=== PATIENT | female | born 1990 | race African-American/Black ===

== ENCOUNTER 2016-12-05 08:40 | Emergency (ER) | payer MEDICAID ==
[~2016-12-05] VITALS: Ht 167.6 cm; Wt 74.8 kg
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
[2016-12-05 09:07] VITALS: BP 127/87
[2016-12-05] MEDS ORDERED: IBUPROFEN600 MG ORAL (09:56)
[2016-12-05] MEDS ORDERED: ALBUTEROL SULF8.5 GM INH (09:56)
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
[2016-12-05 10:23] VITALS: BP 122/89
== END 2016-12-05 10:24 | disposition home or self-care (01) ==
LOC: EMR 09:14
DX: S02.82XA Fracture of other specified skull and facial bones, left side, initial encounter for closed fracture (principal); S06.9X9A Unspecified intracranial injury with loss of consciousness of unspecified duration, initial encounter; Y04.2XXA Assault by strike against or bumped into by another person, initial encounter; Y93.9 Activity, unspecified; Y92.9 Unspecified place or not applicable; Z88.6 Allergy status to analgesic agent; F31.9 Bipolar disorder, unspecified
CPT/HCPCS: 70450; 99284

== ENCOUNTER 2016-12-11 07:49 | Emergency (ER) | payer MEDICAID ==
[~2016-12-11] VITALS: Ht 167.6 cm; Wt 72.6 kg
[~2016-12-11 07:49] MED LIST: ALBUTEROL SULF8.5 GM INH; IBUPROFEN600 MG ORAL
[2016-12-11 07:57] VITALS: BP 125/83
[2016-12-11] MEDS ORDERED: IBUPROFEN600 MG ORAL (08:18)
[2016-12-11] MEDS ORDERED: ALBUTEROL SULF8.5 GM INH (08:18)
[2016-12-11] MEDS ORDERED: CLARITIN10 M2 ORAL (08:18)
[2016-12-11] MEDS ORDERED: PREDNISONE20 MG ORAL (08:18)
[2016-12-11] MEDS ORDERED: DuoNeb 0.5-3(2.5)mg/3ml neb HHN ONE (08:30)
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
[2016-12-11 08:54] VITALS: BP 121/86
== END 2016-12-11 08:54 | disposition home or self-care (01) ==
LOC: EMR 08:12
DX: R51 Headache (principal); S02.92XA Unspecified fracture of facial bones, initial encounter for closed fracture; X58.XXXA Exposure to other specified factors, initial encounter; Y93.9 Activity, unspecified; Y99.9 Unspecified external cause status; H57.12 Ocular pain, left eye; J40 Bronchitis, not specified as acute or chronic; Z88.6 Allergy status to analgesic agent; Z88.5 Allergy status to narcotic agent
CPT/HCPCS: 94640; 94664; 99284; J7620

== ENCOUNTER 2016-12-14 13:57 | Emergency (ER) | payer MEDICAID ==
[~2016-12-14] VITALS: Ht 167.6 cm; Wt 77.1 kg
[~2016-12-14 13:57] MED LIST changes: +CLARITIN10 M2 ORAL; +PREDNISONE20 MG ORAL
[2016-12-14] MEDS ORDERED: Albuterol ud Inhalation HHN ONE (14:15)
[2016-12-14] MEDS ORDERED: Solu-MEDROL 125mg Inj IM ONE (14:15)
--- NOTE | 2016-12-14 14:17 | Emergency Room Report ---
History of Present Illness General Chief Complaint: Skin Rash/Abscess Present Illness HPI Patient is a 23-year-old female who presents the ED today with complaints of a rash that began 2 days ago. She states she recently began taking [place], which is a new medication for her and she thinks the rash is secondary to the [place]. Patient also notes associated wheezing, has been taking albuterol inhaler with some relief. She is using hydrocortisone for the itching with some relief. Denies any new lotions, soaps, detergents, foods, pets contacts. Allergies: Coded Allergies: ACETAMINOPHEN (Verified Allergy, Unknown, 12/05/16) CODEINE (Verified Allergy, Unknown, 12/05/16) HYDROCODONE (Verified Allergy, Unknown, 12/05/16) Patient History Now: No Reviewed Nursing Documentation: PMH: Agreed, PSxH: Agreed Nursing Documentation-PMH Hx Asthma: Yes - Bronchitis Review of Systems Respiratory: Reports: wheezing Skin: Reports: rash All Other Systems: negative except mentioned in HPI Physical Exam Vital Signs Date Time Temp Pulse Resp B/P (MAP) Pulse Ox O2 Delivery O2 Flow Rate FiO2 12/14/16 14:01 97.7 130 20 135/90 96 Room Air Sp02 EP Interpretation: reviewed, normal General Appearance: no apparent distress, alert, GCS 15, non-toxic Head: normocephalic, atraumatic Eyes: bilateral eye normal inspection, bilateral eye PERRL ENT: hearing grossly normal, normal pharynx, no angioedema, normal voice Neck: full range of motion, supple/symm/no masses Respiratory: chest non-tender, speaking full sentences, other - faint inspiratory wheezing in all lung [place] Cardiovascular #1: regular rate, rhythm, no edema Cardiovascular #2: 2+ carotid (R), 2+ carotid (L), 2+ radial (R), 2+ radial (L) , 2+ dorsalis pedis (R), 2+ dorsalis pedis (L) Gastrointestinal: normal bowel sounds, non tender, soft, non-distended, no guarding, no rebound Rectal: deferred Genitourinary: normal inspection, no CVA tenderness Musculoskeletal: back normal, gait/station normal, normal range of motion, non- tender, calf tenderness Neurologic: alert, oriented x3, responsive, motor strength/tone normal, sensory intact, speech normal Psychiatric: judgement/insight normal, memory normal, mood/affect normal, no suicidal/homicidal ideation Reflexes: 3+ bicep (R), 3+ bicep (L), 3+ tricep (R), 3+ tricep (L), 3+ knee (R) , 3+ knee (L) Skin: normal color, warm/dry, well hydrated, other - maculopapular erruption on trunk Lymphatic: no adenopathy Medical Decision Making PA Attestation supervising physician is Dr. Koehler ER Course Patient is unemployed here to carry on and acute bronchospasm. Patient given Solu-Medrol, Benadryl and Pepcid with improvement of symptoms. Chest x-ray is within normal limits. Patient given breathing treatment with improvement of the wheezing. Her reevaluation at 1609, patient states she is feeling much better. Rash is improving, and wheezing is resolved and the itching is improving. Patient discharged home with prednisone and instructed to take Benadryl and Pepcid as needed for itching. Patient understands and is agreeable to plan. Chest X-Ray Diagnostic Results Chest X-Ray Diagnostic Results : Chest X-Ray Ordered: Yes # of Views/Limited/Complete: 1 View Indication: Shortness of Breath EP Interpretation: Yes Interpretation: no consolidation, no effusion, no pneumothorax Impression: No acute disease Electronically Signed by: Margaret gonzalez Last Vital Signs Date Time Temp Pulse Resp B/P (MAP) Pulse Ox O2 Delivery O2 Flow Rate FiO2 12/14/16 14:01 97.7 130 20 135/90 96 Room Air Status: improved Disposition: HOME, SELF-CARE Condition: Stable Scripts Prednisone* (PREDNISONE*) 20 Mg Tablet 40 MG ORAL DAILY for 4 Days, #4 TAB Prov: Margaret Gnozalez 12/14/16 Margaret Gonzalez Dec 14, 2016 14:17
[2016-12-14 14:50] VITALS: BP 139/92
[2016-12-14] MEDS ORDERED: PREDNISONE20 MG ORAL (16:10)
[2016-12-14 16:21] VITALS: BP 131/89
--- NOTE | 2016-12-15 11:51 | Diagnostic Imaging Report ---
Indication: SOB Technique: One view of the chest Comparison: none Findings: Lungs and pleural spaces are clear. Heart size is normal. Impression: No acute process
== END 2016-12-14 16:22 | disposition home or self-care (01) ==
LOC: EMR 14:30
DX: R21 Rash and other nonspecific skin eruption (principal); Z88.6 Allergy status to analgesic agent
CPT/HCPCS: 71010; 81025; 94640; 96372; 99284; J2930

== ENCOUNTER 2016-12-27 08:02 | Emergency (ER) | payer MEDICAID ==
[~2016-12-27] VITALS: Ht 167.6 cm; Wt 80.7 kg
[2016-12-27] MEDS ORDERED: ALBUTEROL SULF8.5 GM INH (08:17)
[2016-12-27] MEDS ORDERED: LORATADINE-D 11 EAC1 PO (08:17)
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
[2016-12-27 08:25] VITALS: BP 125/69
[2016-12-27 08:28] VITALS: BP 125/69
[2016-12-27] MEDS ORDERED: IBUPROFEN600 MG ORAL (09:49)
== END 2016-12-27 08:35 | disposition home or self-care (01) ==
LOC: EMR 08:16
DX: J30.9 Allergic rhinitis, unspecified (principal); J45.909 Unspecified asthma, uncomplicated; Z88.6 Allergy status to analgesic agent
CPT/HCPCS: 99284

== ENCOUNTER 2017-01-22 06:59 | Emergency (ER) | payer MEDICAID ==
[~2017-01-22] VITALS: Ht 167.6 cm; Wt 72.6 kg
[~2017-01-22 06:59] MED LIST changes: +LORATADINE-D 11 EAC1 PO
[2017-01-22] MEDS ORDERED: ABILIFY20 MG ORAL (07:15)
[2017-01-22] MEDS ORDERED: TRAZODONE HCL150 MG ORAL (07:15)
[2017-01-22] MEDS ORDERED: ADDERAL20 MG ORAL (07:15)
[2017-01-22] MEDS ORDERED: Albuterol ud Inhalation HHN ONE (07:30)
[2017-01-22] MEDS ORDERED: Tylenol #3 tab (300mg/30mg) ORAL ONE (07:30)
[2017-01-22] MEDS ORDERED: Ipratropium 0.02% Inh Soln 2.5ml UD HHN ONE (07:30)
[2017-01-22 08:02] VITALS: BP 125/88
[2017-01-22] MEDS ORDERED: PROMETHAZI6.25 MG/1 ORAL (08:13)
[2017-01-22] MEDS ORDERED: ALBUTEROL SULF8.5 GM INH (08:13)
[2017-01-22] MEDS ORDERED: ACETAMINOPHEN-1 EAC1 ORAL (08:13)
[2017-01-22] MEDS ORDERED: PREDNISONE20 MG ORAL (08:13)
[2017-01-22 08:17] VITALS: BP 127/87
--- NOTE | 2017-01-22 13:20 | Diagnostic Imaging Report ---
Indication: Chest pain Technique: One view of the chest Comparison: [id number] Findings: Lungs and pleural spaces are clear. Heart size is normal. Impression: No acute process
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
--- NOTE | 2017-01-23 13:29 | Cardiology Report ---
APPROVED REPORT EKG Measurement Heart [id number] Sinus tachycardia Otherwise normal ECG
== END 2017-01-22 08:18 | disposition home or self-care (01) ==
LOC: EMR 07:20
DX: J40 Bronchitis, not specified as acute or chronic (principal); Z88.6 Allergy status to analgesic agent; J45.909 Unspecified asthma, uncomplicated; S02.92XD Unspecified fracture of facial bones, subsequent encounter for fracture with routine healing; Y04.8XXD Assault by other bodily force, subsequent encounter
CPT/HCPCS: 71010; 93005; 94640; 94664; 99284

== ENCOUNTER 2020-03-14 21:06 | Emergency (ER) | payer MEDICAID ==
[~2020-03-14] VITALS: Ht 165.1 cm; Wt 70.3 kg
[~2020-03-14 21:06] MED LIST changes: +ABILIFY20 MG ORAL; +ACETAMINOPHEN-1 EAC1 ORAL; +ADDERAL20 MG ORAL; +PROMETHAZI6.25 MG/1 ORAL; +TRAZODONE HCL150 MG ORAL
[2020-03-14] MEDS ORDERED: BENADRYL25 MG ORAL ×2 (21:14→22:08)
[2020-03-14 22:00] VITALS: BP 118/83
--- NOTE | 2020-03-14 22:00 | NUR ---
ED Nurse Note: pt placed in RME, pt walked into ED from home needing medication refill for trazodone 150mg, abilify 20mg and benadryl 50 mg.
[2020-03-14] MEDS ORDERED: TRAZODONE HCL150 MG ORAL (22:08)
[2020-03-14] MEDS ORDERED: ABILIFY20 MG ORAL (22:08)
--- NOTE | 2020-03-14 22:09 | Emergency Room Report ---
History of Present Illness General Chief Complaint: Medication Refill Source: Patient Present Illness HPI This is 29-year-old female with a psychiatric history. She presents with chief complaint of needing medication refill. She lost her purse and her medications were in her purse. Denies any other complaint. No nausea no vomiting. No fever chills. Allergies: Coded Allergies: ACETAMINOPHEN (Verified Allergy, Unknown, 01/22/17) HYDROCODONE (Verified Allergy, Unknown, 01/22/17) COVID-19 Screening Contact w/high risk pt: No Experienced COVID-19 symptoms?: No COVID-19 Testing performed [employer]: Yes - 11/2019 COVID-19 Screening: Negative COVID-19 COVID-19 Testing Source: [facility] Patient History Past Medical History: see triage record, old chart reviewed Past Surgical History: none Pertinent Family History: none Social History: Denies: smoking Last Menstrual Period: 03/09/2020 Now: No Immunizations: other Reviewed Nursing Documentation: PMH: Agreed; PSxH: Agreed Nursing Documentation-PMH Past Medical History: No History, Except For Hx Asthma: Yes - Bronchitis Review of Systems Eye: Denies: eye pain, blurred vision ENT: Denies: ear pain, nose congestion, throat swelling Respiratory: Denies: cough, shortness of breath Cardiovascular: Denies: chest pain, palpitations Gastrointestinal: Denies: abdominal pain, diarrhea, nausea, vomiting Musculoskeletal: Denies: back pain, joint pain Skin: Denies: rash Neurological: Denies: headache, numbness Endocrine: Denies: increased thirst, increased urine Hematologic/Lymphatic: Denies: easy bruising All Other Systems: negative except mentioned in HPI Physical Exam Vital Signs Date Time Temp Pulse Resp B/P (MAP) Pulse Ox O2 Delivery O2 Flow Rate FiO2 03/14/20 21:10 98.2 81 18 115/79 (91) 97 Room Air Vitals normal Sp02 EP Interpretation: reviewed, normal General Appearance: well appearing, no apparent distress, alert Head: normocephalic, atraumatic Eyes: bilateral eye PERRL, bilateral eye EOMI ENT: hearing grossly normal, normal pharynx Neck: full range of motion, supple, no meningismus Respiratory: chest non-tender, lungs clear, normal breath sounds Cardiovascular #1: regular rate, rhythm, no murmur Gastrointestinal: normal bowel sounds, non tender, no mass, no organomegaly, no bruit, non-distended Musculoskeletal: back normal, normal range of motion, gait/station normal Psychiatric: mood/affect normal Medical Decision Making Diagnostic Impression: Primary Impression: Encounter for medication refill ER Course Patient here for medication refill. No other issues. Last Vital Signs Date Time Temp Pulse Resp B/P (MAP) Pulse Ox O2 Delivery O2 Flow Rate FiO2 03/14/20 21:10 98.2 81 18 115/79 (91) 97 Room Air Status: unchanged Disposition: HOME, SELF-CARE Condition: Stable Scripts Diphenhydramine Hcl* (BENADRYL*) 25 Mg Capsule 50 MG ORAL Q6H PRN for Itching, #30 CAP Prov: Ortega Nowak MD 03/14/20 Aripiprazole* (ABILIFY*) 20 Mg Tablet 20 MG ORAL DAILY, #30 TAB Prov: Ortega Nowak MD 03/14/20 Trazodone* (TRAZODONE*) 150 Mg Tablet 150 MG ORAL BEDTIME, #30 TAB Prov: Ortega Nowak MD 03/14/20 Patient Instructions: Medicine Refill at the Emergency Department Additional Instructions: Follow-up with your doctor as scheduled for refill your medication. Return if symptoms worsen. Ortega Nowak MD Mar 14, 2020 22:09
[2020-03-14 22:10] VITALS: BP 118/81
--- NOTE | 2020-03-14 22:10 | NUR ---
ER DISCHARGE NOTE: Patient is cleared to be discharged per ERMD, pt is aox4, on room air, with stable vital signs. pt was given dc and paper prescriptions given, pt was able to verbalize understanding, pt id band removed. pt is able to ambulate with steady gait. pt took all belongings.
== END 2020-03-14 22:15 | disposition home or self-care (01) ==
LOC: EMR 22:15
DX: Z76.0 Encounter for issue of repeat prescription (principal); J45.909 Unspecified asthma, uncomplicated; Z88.6 Allergy status to analgesic agent; Z88.5 Allergy status to narcotic agent
CPT/HCPCS: 99282